=== PATIENT | male | born 1970 | race Caucasian/White ===

== ENCOUNTER 2016-07-24 11:11 | Emergency (ER) | payer SELFPAY | END 2016-07-24 12:23 | disposition home or self-care (01) | LOC: D.ER 11:11 | DX: L25.9 Unspecified contact dermatitis, unspecified cause (principal); F17.200 Nicotine dependence, unspecified, uncomplicated ==

== ENCOUNTER 2016-09-08 13:06 | Emergency (ER) | payer SELFPAY | END 2016-09-08 15:23 | disposition home or self-care (01) | LOC: D.ER 13:06 | DX: L25.9 Unspecified contact dermatitis, unspecified cause (principal); L30.8 Other specified dermatitis ==

== ENCOUNTER 2019-09-10 19:29 | Emergency (ER) | payer OTHER ==
[~2019-09-10] VITALS: Ht 175.3 cm; Wt 88.6 kg
[2019-09-10 19:38] VITALS: BP 126/61; Ht 175.3 cm; Wt 88.6 kg
== END 2019-09-10 21:46 | disposition left against medical advice (07) ==
LOC: D.ER 19:29
DX: Z53.21 Procedure and treatment not carried out due to patient leaving prior to being seen by health care provider (principal)